=== PATIENT | female | born 1965 | race Caucasian/White ===

== ENCOUNTER 2020-07-19 14:13 | Outpatient (REF) | payer OTHER, SELFPAY ==
[2020-07-19 14:49] LABS: MANUAL DIFF FLAG NO
[2020-07-19 14:58] LABS: Basophils Percent Auto 0.4 % (0-2); Eosinophils Absolute Auto 0.4 X10*3/uL (0.0-0.4); Eosinophils Percent Auto 4.5 % (0-4); Hematocrit 42.7 % (37-47); Hemoglobin 13.7 g/dl (12.0-16.0); Imm Gran Abs Auto 0.01 X10*3/uL (0.00-0.03); Imm Gran Pct Auto 0.1 % (0.0-0.4); Lymphocytes Absolute Auto 3.8 X10*3/uL (1.2-4.9); Lymphocytes Percent Auto 46.8 % (20-40); Mean Corpuscular HGB Conc 32.1 g/dl (31.0-35.0); Mean Corpuscular Hemoglobin 30.6 pg (27.0-33.0); Mean Corpuscular Volume 95.5 fL (80-98); Mean Platelet Volume 10.8 fL (9.4-12.3); Monocytes Absolute Auto 0.5 X10*3/uL (0.1-1.2); Neutrophils Absolute Auto 3.4 X10*3/uL (2.0-8.3); Neutrophils Percent Auto 42.2 % (45-73); Platelet Count 339 X10*3/uL (160-400); Red Blood Count 4.47 X10*6/uL (4.20-5.50); Red Cell Distribution Width 13.2 % (11.0-16.0)
[2020-07-19 15:14] LABS: Estimated Average Glucose 97 mg/dL
[2020-07-19 15:19] LABS: Alanine Aminotransferase 20 U/L (0-31); Albumin Level 4.4 g/dL (3.5-5.0); Alkaline Phosphatase 95 U/L (39-117); Anion Gap 13 (12-20); Aspartate Amino Transferase 15 U/L (5-31); Bilirubin Total 0.4 mg/dL (0.0-1.0); Blood Urea Nitrogen 32 mg/dL (9-16); Calcium 9.8 mg/dL (8.4-10.2); Carbon Dioxide 30 mmol/L (22-29); Chloride 104 mmol/L (96-108); Estimated Glomerular Filt Rate > 60; Glucose Fasting 106 mg/dL (60-99); Potassium 4.8 mmol/L (3.3-5.1); Sodium 142 mmol/L (135-145); Total Protein 6.5 g/dL (6.5-8.0)
[2020-07-19 15:40] LABS: TSH reflex Free T4 0.96 uIU/mL (0.32-4.0)
== END 2020-07-19 14:14 | disposition home or self-care (01) ==
LOC: HO.LAB 14:13
PROVIDERS: PCP Physician Assistant; Visit Provider Physician Assistant
DX: I10 Essential (primary) hypertension (principal); J43.9 Emphysema, unspecified; Z13.1 Encounter for screening for diabetes mellitus
CPT/HCPCS: 36415; 80053; 83036; 84443; 85025

== ENCOUNTER 2023-02-09 14:19 | Outpatient (AMB) | payer OTHER, SELFPAY ==
[2023-02-09 14:24] VITALS: BP 138/92; PULSE 86; O2SAT 94; BMI 17.4
--- NOTE | 2023-02-09 14:24 | A.OFFPC_ITS ---
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 Required: No Accompanied by: Self / Same As Patient Allergies naltrexone [From Vivitrol] Allergy (Unknown, Verified 02/09/23 15:03) nausea vomitting Medication List - Last Reconciled 02/09/23 by Charlie Valente PA-C albuterol sulfate 90 mcg/actuation (Ventolin HFA) 2 puffs inhalation Q6H 30 days dextroamphetamine-amphetamine 10 mg (Adderall) 10 mg PO DAILY 28 days dextroamphetamine-amphetamine 20 mg ER (Adderall XR) 20 mg PO DAILY 28 days gabapentin 400 mg PO BID 30 days omeprazole 40 mg PO DAILY 90 days Tobacco use date assessed: 07/08/22 Dental Screening Dental Screen Date: 02/09/23 Did you have a dental visit in the last 12 months?: No Did you have a dental problem in the last 6 months where you did not have access to dental care?: No Was dental information given to patient?: Patient has dentist HPI medication follow-up 2 HPI0 Details Almaz is a 56 y/o F here today for a follow-up visit. Past medical history a opioid dependence, asthma/COPD, ADHD, anxiety, depression, PTSD. Still not working. Of note she has stopped using her Suboxone since January 2022 Of note seems somewhat manic today in office. Now living in an apartment here in [place] she does not feel safe in. ? .. ? ADHD: . Patient reports she stable on her current ADHD meds.? She was on Adderall 20 mg extended release in 10 mg immediate release. We did discuss the habit-forming nature of this medication though does seem to be suffering with an ADHD disorder . Agree to continue her on 1 tablet of Adderall 30 mg extended release to take on a daily basis to help her with her attention and focus. .. Major depressive disorder/ anxiety: She reports gabapentin is helpful on reducing her anxiety and her neuropathic pain.? She is interested in a slight increase in the dose. We did have a discussion about the habit-forming nature of this medication and her history of polysubstance abuse and patient does agree and understand. .. .. Hypertension:? Blood pressure acceptable today in office. ?? had a history of hypertension though has been able to control her blood pressure with lifestyle.. .. ?opiate dependence:? Has stopped using Suboxone and has been able to wean herself off. She reports having nausea and vomiting with this Suboxone and self weaned, she assures me she is not using any street drugs at this time though has lost lot weight and seems somewhat more ? manic today in office. .. GERD:? Has been well controlled with PPI therapy. .. COPD: Unfortunately still smoking,? She report cutting down her smoking as of late. Still does use an albuterol inhaler from time to time. [facility] Medical History (Updated 02/10/23 @ 07:45 by Charlie Valente PA-C) Alcohol dependence Surgical History History of esophagogastroduodenoscopy (EGD) History of tooth extraction History of dental surgery H/O: hysterectomy Family History Father Brain tumor Mother Asthma CHF (congestive heart failure) Diabetes Brother No problems noted. Brother No problems noted. Brother No problems noted. 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 Leonel Wallace, Shruthi Lynne, Gui Cantu and colleagues, with an educational cassie from [employer]. Review of Systems Const Denies headache(s) Eyes Denies loss of vision ENT Denies vertigo, Denies dizziness, Denies headache(s) and Denies sore throat Card Denies chest pain, Denies leg edema and Denies lightheadedness Resp Denies cough, Denies hemoptysis and Denies wheezing GI Denies abdominal pain, Denies melena, Denies constipation, Denies diarrhea and Denies vomiting Denies urinary frequency, Denies dysuria and Denies urinary urgency Musc Denies arthralgias, Denies joint swelling, Denies numbness and Denies tingling Neuro Denies Abnormal speech present, Denies behavioral changes, Denies vertigo, Denies dizziness, Denies headache(s), Denies loss of vision, Denies memory loss, Denies numbness and Denies tingling Psych Denies anxiety, Denies behavioral changes, Denies depression, Denies memory loss and Denies panic attacks Nishant/Lymph Denies easy bleeding and Denies easy bruising Aller/Immun Denies wheezing Physical exam (Primary Care) Vital Signs: Last Vital Signs Pulse 86 02/09/23 14:24 BP 138/92 H 02/09/23 14:24 Pulse Ox 94 02/09/23 14:24 Oxygen Delivery Method Room Air 02/09/23 14:24 BMI result Body Mass Index 17.4 BMI Assessment/Plan discussion: Low Tobacco/Smoking Status: Tobacco use Status Tobacco use date assessed 07/08/22 02/09/23 14:25 Patient Tobacco Use Status Current everyday Tobacco 02/09/23 14:25 Tobacco use type Cigarette 02/09/23 14:25 e-Cigarette/Vaping Use Never Used 02/09/23 14:25 Are you ready to quit: No Tobacco cessation counseling provided: Yes Items discussed: Nicotine replacement Relapse Prevention: discussed the importance of a supportive environment, discussed negative mood or depression after quitting, weight gain after smoking is common and discussed dietary, exercise and/or lifestyle changes Number of minutes spent counselin CPT code: 06958 - 4-10 Minutes Thrive Assessment: Date of Thrive Assessment Date Thrive assessed 07/08/22 02/09/23 14:25 Const Other: SEEMS SOMEWHAT HYPERACTIVE AND TALKATIVE TODAY IN OFFICE. General: no acute distress, alert and awake Nutritional Appearance: well nourished Orientation/consciousness: oriented to person, oriented to place and oriented to time HENMT Ears: TM's normal bilaterally General nose exam: Normal nasal mucous membranes and turbinates present Eyes Conjunctivae: conjunctivae normal Sclerae: sclerae normal Pupils: Equal, round and reactive pupils present Neck Neck: Yes no lymphadenopathy and Yes no JVD Thyroid: Thyroid normal Carotids: no bruits Resp Effort & Inspection: normal respiratory effort and not tachypneic Auscultation: no crackles, no rales, no rhonchi and no wheezes Cardio Rate: regular rate Rhythm: regular rhythm Heart sounds: no murmurs and normal S1 and S2 GI Palpation (GI): Soft to palpation, nontender, no hepatomegaly and no splenomegaly Auscultation: normal bowel sounds Abdomen image: 2 1. PALPABLE LUMP OVER HER UMBILICUS NOTED. Skin General skin exam: no rashes or lesions noted and dry skin Neuro General: oriented to person, oriented to place and oriented to time Cranial nerves: Yes Equal, round and reactive pupils present Speech: No Abnormal speech present Gait exam (Neuro): Normal gait present Motor exam (neuro): no tremor noted Extrem Right upper extremity: full ROM Left upper extremity: full ROM Right lower extremity: full ROM; no edema Left lower extremity: full ROM; no edema Psych Mental Status: mental status grossly normal Speech and movement: Normal speech and movement present Affect: normal affect Attitude: cooperative Thought process: Normal thought process present Assessment and Plan Assessment & Plan (1) ADHD: Code(s): F90.9 - Attention-deficit hyperactivity disorder, unspecified type Qualifiers: Attention deficit-hyperactivity disorder type: combined inattentive- hyperactive Qualified Code(s): F90.2 - Attention-deficit hyperactivity disorder, combined type Plan: As per HPI patient, she has been out of ADHD medication over the last month and has been having worsening attention to detail and focus.. WILL DISCONTINUE BOTH ADDERALL 20 MG EXTENDED RELEASE AND 10 MG IMMEDIATE RELEASE AND TRANSITION TO 1 TABLET OF 30 MG EXTENDED RELEASE DAILY. SHE CONTINUES TO EXHIBIT SIGNS OF LACK OF FOCUS AND INABILITY TO GATHER THOUGHTS. 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 Otherwise does not have a stable job. (2) COPD (chronic obstructive pulmonary disease): Code(s): J44.9 - Chronic obstructive pulmonary disease, unspecified Qualifiers: COPD type: emphysema Emphysema type: unspecified Qualified Code(s): J 43.9 - Emphysema, unspecified Plan: UNFORTUNATELY DOES CONTINUE TO SMOKE. DOES USE AN ALBUTEROL INHALER ON A P.R.N. BASIS FOR COUGH AND WHEEZE. (3) Tobacco dependence: Code(s): F17.200 - Nicotine dependence, unspecified, uncomplicated Plan: PATIENT DOES UNDERSTAND SHE NEEDS TO QUIT SMOKING THOUGH DECLINES MY OFFERS TO START NICOTINE REPLACEMENT THERAPY. (4) Umbilical hernia: Code(s): K42.9 - Umbilical hernia without obstruction or gangrene Qualifiers: Obstruction and gangrene presence: without obstruction or gangrene Qualified Code(s): K42.9 - Umbilical hernia without obstruction or gangrene Plan: Has a palpable lump over her umbilicus. Offered her referral to general surgeon for evaluation on surgical fix though patient declines. (5) Opiate dependence: Code(s): F11.20 - Opioid dependence, uncomplicated Qualifiers: Substance use status: in remission Qualified Code(s): F11.21 - Opioid dependence, in remission Plan: Now in remission. Has been office Suboxone since January of 2022. Reports Suboxone gave her intolerable side effects. She informs me she is clean from street drugs though this is unclear. Orders: Orders 2 Complete Blood Count no Diff 02/09/23 I10 - Essential (primary) hypertension Comprehensive [place]. Panel Fast 02/09/23 I10 - Essential (primary) hypertension Microalbumin, Random (w Creat) 02/09/23 I10 - Essential (primary) hypertension Medications: New 2 dextroamphetamine-amphetamine 30 mg ER (Adderall XR) Partial Fill upon patient request. 30 mg PO DAILY 28 days 28 caps 0RF F90.2 - Attention-deficit hyperactivity disorder, combined type Discontinued 2 dextroamphetamine-amphetamine 10 mg (Adderall) Discontinued Reason: Doctor's Order 10 mg PO DAILY 28 days 28 tabs 0RF F90.2 - Attention-deficit hyperactivity disorder, combined type dextroamphetamine-amphetamine 20 mg ER (Adderall XR) Discontinued Reason: Doctor's Order 20 mg PO DAILY 28 days 28 caps 0RF F90.2 - Attention-deficit hyperactivity disorder, combined type Coding Level of Care Code Est Pt Level 4 (76231) Diagnoses Attention deficit hyperactivity disorder (ADHD), combined type F90.2 Attention deficit-hyperactivity disorder type: combined inattentive- hyperactive Pulmonary emphysema, unspecified emphysema type J43.9 COPD type: emphysema Emphysema type: unspecified Tobacco dependence F17.200 Umbilical hernia without obstruction and without gangrene K42.9 Obstruction and gangrene presence: without obstruction or gangrene Opioid dependence in remission F11.21 Substance use status: in remission Additional Codes Vital Signs *Quality* - CPT code: 18616 - 4-10 Minutes ([id number])
== END 2023-02-09 15:24 | disposition home or self-care (01) ==
PROVIDERS: PCP Physician Assistant; Visit Provider Physician Assistant
DX: J43.9 Emphysema, unspecified (principal); F11.21 Opioid dependence, in remission; F90.2 Attention-deficit hyperactivity disorder, combined type; F17.210 Nicotine dependence, cigarettes, uncomplicated; K42.9 Umbilical hernia without obstruction or gangrene
CPT/HCPCS: 99214; 99406

== ENCOUNTER 2023-09-22 15:45 | Outpatient (AMB) | payer OTHER, SELFPAY ==
--- NOTE | 2023-09-22 15:53 | MHC.PC.OV ---
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 Accompanied by: Self / Same As Patient Allergies naltrexone [From Vivitrol] Allergy (Unknown, Verified 09/22/23 16:04) nausea vomitting Medication List - Last Reconciled 09/22/23 by Charlie Valente PA-C albuterol sulfate 90 mcg/actuation (Ventolin HFA) 2 puffs inhalation Q6H 30 days dextroamphetamine-amphetamine 10 mg (Adderall) 10 mg PO DAILY 28 days dextroamphetamine-amphetamine 20 mg ER (Adderall XR) 20 mg PO DAILY 28 days gabapentin 400 mg PO BID 30 days lisdexamfetamine (Vyvanse) 30 mg PO DAILY 30 days omeprazole 40 mg PO DAILY 90 days Tobacco use date assessed: 09/22/23 Dental Screening Dental Screen Date: 09/22/23 Did you have a dental visit in the last 12 months?: No Did you have a dental problem in the last 6 months where you did not have access to dental care?: No Was dental information given to patient?: Patient declined HPI f/u ADHD HPI Details Almaz is a 58 y/o F here today for a follow-up visit. Past medical history a opioid dependence, asthma/COPD, ADHD, anxiety, depression, PTSD. Still not working. Of note she has stopped using her Suboxone since January 2022 Of note seems somewhat manic today in office. currently homeless ? .. ? ADHD: . Patient reports she stable on her current ADHD meds.? She was on Adderall 20 mg extended release in 10 mg immediate release. We transitioned to Vyvanse, she reports Vyvanse is not as effective . Unfortunately at this time she is not working and is homeless. Living with family. . Agree to continue her on 1 tablet of Adderall 30 mg extended release to take on a daily basis to help her with her attention and focus. .. Major depressive disorder/ anxiety: She reports gabapentin is helpful on reducing her anxiety and her neuropathic pain.? She is interested in a slight increase in the dose. We did have a discussion about the habit-forming nature of this medication and her history of polysubstance abuse and patient does agree and understand. .. .. Hypertension: Patient has a history of a blood pressure. Has been able to manage with lifestyle modifications.? Blood pressure acceptable today in office. ?? had a history of hypertension though has been able to control her blood pressure with lifestyle.. .. History of?opiate dependence:? Admits to some relapses over the last year. Has stopped using Suboxone and has been able to wean herself off. She reports having nausea and vomiting with this Suboxone and self weaned, she assures me she is not using any street drugs at this time though has lost lot weight and seems somewhat more ? manic today in office. .. GERD:? Has been well controlled with PPI therapy. .. COPD: Unfortunately still smoking,? She report cutting down her smoking as of late. Still does use an albuterol inhaler from time to time. [facility] Medical History (Updated 02/10/23 @ 07:45 by Charlie Valente PA-C) Alcohol dependence Surgical History History of esophagogastroduodenoscopy (EGD) History of tooth extraction History of dental surgery H/O: hysterectomy Family History Father Brain tumor Mother Asthma CHF (congestive heart failure) Diabetes Brother No problems noted. Brother No problems noted. Brother No problems noted. 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 1. Little interest or pleasure in doing things: not at all 2. Feeling down, depressed, or hopeless: not at all 3. Trouble falling or staying asleep, or sleeping too much: not at all 4. Feeling tired or having little energy: not at all 5. Poor appetite or overeating: not at all 6. Feeling bad about yourself - or that you are a failure or have let yourself or your family down: not at all 7. Trouble concentrating on things, such as reading the newspaper or watching television: not at all 8. Moving or speaking so slowly that other people could have noticed. Or the opposite - being so fidgety or restless that you have been moving around a lot more than usual: not at all 9. Thoughts that you would be better off or of hurting yourself in some way: not at all Total score: 0 Depression Screening Interpretation: Negative Depression Screening Done: Yes [id number] - PHQ-9 Billing: Yes Source: Developed by Drs. Leonel Wallace, Shruthi Lynne, Gui Cantu and colleagues, with an educational cassie from [employer]. Thrive Questionnaire Date Thrive assessed: 09/22/23 I am a: Patient What is your living situation today?: I have a steady place to live Within the past 12 months, did the food you bought not last and you didn't have the money to get more?: Never true Within the past 12 months, did you worry whether your food would run out before you got money to buy more?: Never true Do you have trouble paying for medicines?: No Do you have trouble getting transportation to medical appointments?: No Do you have trouble paying your heating and electricity bill?: No Do you have trouble taking care of your child, family member or friend?: No Do you have trouble with day-to-day activities such as bathing, preparing meals, shopping, managing finances, etc.?: No Are you currently unemployed and looking for a job?: No Are you interested in more education?: No Please select the resources that you would like help with: None Currently or been in a relationship where the following occur: No concerns reported THRIVE Score: 0 AUDIT C Alcohol Use Questionnaire (AUDIT-C) 1. How often do you have a drink containing alcohol?: Never Total Score: 0 JEREMI-7 AMB Questionnaire JEREMI-7 Date JEREMI - 7 assessed: 09/22/23 Feeling nervous, anxious, or on edge: 0 = Not at all Not being able to stop or control worryin = Not at all Worrying too much about different things: 0 = Not at all Trouble relaxin = Not at all Being so restless that it is hard to sit still: 0 = Not at all Becoming easily annoyed or irritable: 0 = Not at all Feeling afraid as if something awful might happen: 0 = Not at all Total JEREMI-7 score (0-4 normal; 5-9 mild; 10-14 moderate; 15-21 severe): 0 Source: Developed by Drs. Leonel Wallace, Shruthi Lynne, Gui Cantu and colleagues, with an educational cassie from [employer]. JEREMI-7 Assessment Billing JEREMI-7 Assessment Tool: JEREMI-7 Assessment 91598 Review of Systems Const Denies headache(s) Eyes Denies loss of vision ENT Denies vertigo, Denies dizziness, Denies headache(s) and Denies sore throat Card Denies chest pain, Denies leg edema and Denies lightheadedness Resp Denies cough, Denies hemoptysis and Denies wheezing GI Denies abdominal pain, Denies melena, Denies constipation, Denies diarrhea and Denies vomiting Denies urinary frequency, Denies dysuria and Denies urinary urgency Musc Denies arthralgias, Denies joint swelling, Denies numbness and Denies tingling Neuro Denies Abnormal speech present, Denies behavioral changes, Denies vertigo, Denies dizziness, Denies headache(s), Denies loss of vision, Denies memory loss, Denies numbness and Denies tingling Psych Denies anxiety, Denies behavioral changes, Denies depression, Denies memory loss and Denies panic attacks Nishant/Lymph Denies easy bleeding and Denies easy bruising Aller/Immun Denies wheezing Physical exam (Primary Care) Vital Signs: Last Vital Signs Pulse 141 H 09/22/23 15:54 BP 134/86 09/22/23 15:54 Pulse Ox 96 09/22/23 15:54 Oxygen Delivery Method Room Air 09/22/23 15:54 BMI result Body Mass Index 20.1 Tobacco/Smoking Status: Tobacco use Status Tobacco use date assessed 09/22/23 09/22/23 15:55 Patient Tobacco Use Status Current everyday Tobacco 09/22/23 15:55 Tobacco use type Cigarette 09/22/23 15:55 e-Cigarette/Vaping Use Never Used 09/22/23 15:55 Are you ready to quit: No Tobacco cessation counseling provided: Yes Items discussed: Nicotine replacement Relapse Prevention: discussed the importance of a supportive environment, discussed negative mood or depression after quitting, weight gain after smoking is common and discussed dietary, exercise and/or lifestyle changes Number of minutes spent counselin CPT code: 49659 - 4-10 Minutes PHQ-9: PHQ-9 Score PHQ-9: Total score 0 09/22/23 16:08 Depression Screening Interpretation: Negative Thrive Assessment: Date of Thrive Assessment Date Thrive assessed 09/22/23 09/22/23 15:55 Currently or been in a relationship where the following occur: No concerns reported Const General: healthy appearing, no acute distress, alert and awake Nutritional Appearance: well nourished Orientation/consciousness: oriented to person, oriented to place and oriented to time HENMT Ears: TM's normal bilaterally General nose exam: Normal nasal mucous membranes and turbinates present Eyes Conjunctivae: conjunctivae normal Sclerae: sclerae normal Pupils: Equal, round and reactive pupils present Neck Neck: Yes no lymphadenopathy and Yes no JVD Thyroid: Thyroid normal Carotids: no bruits Resp Effort & Inspection: normal respiratory effort and not tachypneic Auscultation: no crackles, no rales, no rhonchi and no wheezes Cardio Rate: regular rate Rhythm: regular rhythm Heart sounds: no murmurs and normal S1 and S2 GI Palpation (GI): Soft to palpation, nontender, no hepatomegaly and no splenomegaly Auscultation: normal bowel sounds Skin General skin exam: no rashes or lesions noted and dry skin Neuro General: oriented to person, oriented to place and oriented to time Cranial nerves: Yes Equal, round and reactive pupils present Speech: No Abnormal speech present Gait exam (Neuro): Normal gait present Motor exam (neuro): no tremor noted Extrem Right upper extremity: full ROM Left upper extremity: full ROM Right lower extremity: full ROM; no edema Left lower extremity: full ROM; no edema Psych Mental Status: mental status grossly normal Speech and movement: Normal speech and movement present Affect: normal affect Attitude: cooperative Thought process: Normal thought process present Assessment and Plan Assessment & Plan (1) ADHD: Code(s): F90.9 - Attention-deficit hyperactivity disorder, unspecified type Qualifiers: Attention deficit-hyperactivity disorder type: combined inattentive-hyperactive Qualified Code(s): F90.2 - Attention-deficit hyperactivity disorder, combined type Plan: As per HPI patient, she has been out of ADHD medication over the last month and has been having worsening attention to detail and focus.. Unfortunately she has not been working in his technically homeless living with family at this time. She reports Vyvanse has not been as effective for her on keeping her attention and focus on her daily living tasks. Willing to transition back to Adderall 1 tablet 30 mg daily to help her with her attention focus on activities of daily living. *Will try to refer to psychiatry bridge program to establish ineffective med regime for her ADHD. She obviously does have hyperactive activity though seems that medications use of far have not been completely effective. (2) COPD (chronic obstructive pulmonary disease): Code(s): J44.9 - Chronic obstructive pulmonary disease, unspecified Qualifiers: COPD type: emphysema Emphysema type: unspecified Qualified Code(s): J43.9 - Emphysema, unspecified Plan: UNFORTUNATELY DOES CONTINUE TO SMOKE. DOES USE AN ALBUTEROL INHALER ON A P.R.N. BASIS FOR COUGH AND WHEEZE. (3) Tobacco dependence: Code(s): F17.200 - Nicotine dependence, unspecified, uncomplicated Plan: PATIENT DOES UNDERSTAND SHE NEEDS TO QUIT SMOKING THOUGH DECLINES MY OFFERS TO START NICOTINE REPLACEMENT THERAPY. Orders: Referrals Psychiatry Outpatient Consultation Service F90.2 - Attention-deficit hyperactivity disorder, combined type Medications: New dextroamphetamine-amphetamine 30 mg ER (Adderall XR) Partial Fill upon patient request. 30 mg PO DAILY 28 caps 0RF 28 days F90.2 - Attention-deficit hyperactivity disorder, combined type Discontinued lisdexamfetamine Partial Fill upon patient request. Discontinued Reason: Doctor's Order 30 mg PO DAILY 30 days 30 caps 0RF F90.2 - Attention-deficit hyperactivity disorder, combined type dextroamphetamine-amphetamine 20 mg ER Partial Fill upon patient request. Discontinued Reason: Doctor's Order 20 mg PO DAILY 28 days 28 caps 0RF F90.2 - Attention-deficit hyperactivity disorder, combined type dextroamphetamine-amphetamine 10 mg Partial Fill upon patient request. Discontinued Reason: Doctor's Order 10 mg PO DAILY 28 days 28 tabs 0RF F90.2 - Attention-deficit hyperactivity disorder, combined type Coding Level of Care Code Est Pt Level 4 (89245) Diagnoses Attention deficit hyperactivity disorder (ADHD), combined type F90.2 Attention deficit-hyperactivity disorder type: combined inattentive-hyperactive Pulmonary emphysema, unspecified emphysema type J43.9 COPD type: emphysema Emphysema type: unspecified Tobacco dependence F17.200 Additional Codes JEREMI-7 Assessment Billing - JEREMI-7 Assessment Tool: JEREMI-7 Assessment 77149 ([id number]) Vital Signs *Quality* - CPT code: 22718 - 4-10 Minutes ([id number])
[2023-09-22 15:54] VITALS: BP 134/86; PULSE 141; O2SAT 96; BMI 20.1
== END 2023-09-22 16:28 | disposition home or self-care (01) ==
PROVIDERS: PCP Physician Assistant; Visit Provider Physician Assistant
DX: J43.9 Emphysema, unspecified (principal); F90.2 Attention-deficit hyperactivity disorder, combined type; F17.210 Nicotine dependence, cigarettes, uncomplicated
CPT/HCPCS: 99214

== ENCOUNTER 2023-10-28 13:08 | Outpatient (AMB) | payer OTHER, SELFPAY ==
--- NOTE | 2023-10-28 13:55 | MHC.OFFVISPS ---
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 Allergies naltrexone [From Vivitrol] Allergy (Unknown, Verified 09/22/23 16:04) nausea vomitting Medication List - Last Reconciled 10/28/23 by Sandhya Nazario APRN albuterol sulfate 90 mcg/actuation (Ventolin HFA) 2 puffs inhalation Q6H 30 days dextroamphetamine-amphetamine 15 mg (Adderall) 15 mg PO DAILY dextroamphetamine-amphetamine 30 mg ER (Adderall XR) 30 mg PO DAILY 28 days gabapentin 400 mg PO BID 30 days lamotrigine (Lamictal) 25 mg orally Take one tablet daily x 10 days then take 2 tablets every day; 30 days omeprazole 40 mg PO DAILY 90 days HPI- Psychiatric Chief Complaint: consultation HPI Narrative: Pt is 58 yo referred by PCP for eval and treatment of ADHD. Pt struggles with ADHD, unable to focus or concentrate. She stated she has a lot of projects she wants to accomplish, but is unable to because of her sx. She reports high level of stress due to housing and her mother entered hospice today. Pt is labile and easily tearful. She did appear hyperverbal in session; she has pressured speech and talked about housing situation, claiming her landlord falsified documents in court to evict her. She reports a hx of ADHD in childhood; She also reports hx of trauma and has been told she has PTSD. She feels abandoned by her family and friends. Difficult to redirect the conversation, took multiple prompts to realign conversation to her psychiatric medication needs. she says he life has been disorganized for years and she cant seem to find a way to get back on track; she sleeps 2am to noon daily. she reports intruaive thoughts about past trauma and past abandonments. she has night oliver. Past Psychiatric History: past tx for ADHD and PTSD. [facility]. was in residential tx 2017 for tx opiates and cocaine; off suboxone x 2 yrs; reports no opiates since but has used cocaine 2x a month Subjective Subjective Subjective Medication Compliance: Yes Side effects from medications: No Review of Systems Medical Review of Systems: unchanged Mental Status Exam Mental Status Exam Patient Appearance: Appropriate Patient Orientation: Person, Place, Time and Situation Level of Consciousness: Awake Patient Behavior: Appropriate and Restless Mood Description: Anxious and Labile Affect Description: Anxious and Labile Patient Cognition Impaired: No Ability to Follow Directions: Good Speech Pattern: Perseverating and Rambling Hallucinations: None Delusions: Not Present Thought Process: Racing and Distracted Thought Content: positive for Preoccupation and positive for Loose Associations Judgement: Fair Assessment and Plan Assessment & Plan (1) ADHD (attention deficit hyperactivity disorder), combined type: Status: Acute Code(s): F90.2 - Attention-deficit hyperactivity disorder, combined type (2) Chronic post-traumatic stress disorder (PTSD): Status: Acute Code(s): F43.12 - Post-traumatic stress disorder, chronic Plan start lamictal 25 mg daily x 10 days then 50 mg daily thereafter adderall xr 30 mg in am Take adderall IR 15 mg 6 hours after 30 mg XR Medications: New dextroamphetamine-amphetamine 15 mg (Adderall) Partial Fill upon patient request. In addition to 30 XR 15 mg PO DAILY 30 tabs 0RF lamotrigine (Lamictal) 25 mg orally Take one tablet daily x 10 days then take 2 tablets every day; 30 tabs 0RF 30 days Counseling and coordination of Care Pt. Self Management counseling: Maintenance-social rhythm, Mod caffeine/ETOH intake, Sleep hygiene, General coping skills and Problem solving Medication management counseling: Effectiveness, Side effects, Dosing range, Duration, Drug interaction and Adherence Diagnosis and Prognosis Counseling: Accuracy of diagnosis, Problematic behaviors secondary to diagnosis and Adequacy of current interventions Details: I spent 70 minutes reviewing the record, seeing the patient and documenting in the medical record. Counseling provided to the patient/caregiver as outlined below. Addressed patient/caregiver concerns regarding current medication regime including effective adherence. Addressed patient/caregiver concerns regarding diagnosis and prognosis including accuracy of diagnosis, prognosis over time, impact of diagnosis. Addressed patient/caregiver concerns regarding impact of recent stressors. COUNT INCLUDES [facility] Medical History (Updated 10/28/23 @ 13:56 by Sandhya Nazario APRN) Alcohol dependence Surgical History History of esophagogastroduodenoscopy (EGD) History of tooth extraction History of dental surgery H/O: hysterectomy Family History Father Brain tumor Mother Asthma CHF (congestive heart failure) Diabetes Brother No problems noted. Brother No problems noted. Brother No problems noted. 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 Substance History: tobacco 8-10 cigarettes per day, ETOH 2 x a month, THC none, opiates in 2017, cocaine 2 x a month when offered. Trauma History: yes Coding Level of Care Code Psych Diag Eval w/Med (69780) Diagnoses ADHD (attention deficit hyperactivity disorder), combined type F90.2 Chronic post-traumatic stress disorder (PTSD) F43.12
== END 2023-10-28 14:17 | disposition home or self-care (01) ==
LOC: HO.HOP 13:08
PROVIDERS: PCP Physician Assistant; Visit Provider Clinical Nurse Specialist Psychiatric/Mental Health
DX: F90.2 Attention-deficit hyperactivity disorder, combined type (principal); F43.12 Post-traumatic stress disorder, chronic
CPT/HCPCS: 90792

== ENCOUNTER → 2023-10-28 13:08 | Outpatient (BNVA) | payer OTHER, SELFPAY | PROVIDERS: PCP Physician Assistant; Visit Provider Clinical Nurse Specialist Psychiatric/Mental Health | DX: F90.2 Attention-deficit hyperactivity disorder, combined type (principal); F43.12 Post-traumatic stress disorder, chronic | CPT/HCPCS: 90792 ==

== ENCOUNTER 2023-11-12 22:43 | Outpatient (AMB) | payer OTHER, SELFPAY ==
--- NOTE | 2023-11-12 15:33 | A.OFFPSYCH_ITS ---
Intake Intake Visit Reasons: f/u consultation [employer] Required: No Allergies naltrexone [From Vivitrol] Allergy (Unknown, Verified 09/22/23 16:04) nausea vomitting Medication List - Last Reconciled 11/12/23 by Sandhya Nazario APRN albuterol sulfate 90 mcg/actuation (Ventolin HFA) 2 puffs inhalation Q6H 30 days dextroamphetamine-amphetamine 15 mg (Adderall) 15 mg PO DAILY dextroamphetamine-amphetamine 30 mg ER (Adderall XR) 30 mg PO DAILY 28 days gabapentin 400 mg PO BID 30 days lamotrigine (Lamictal) 25 mg orally Take one tablet daily x 10 days then take 2 tablets every day; 30 days omeprazole 40 mg PO DAILY 90 days HPI- Psychiatric Chief Complaint: f/u consultation HPI Narrative: pt reports she is doing worse; her mother a few days after we met; housing is trying to kick her out of her mother's house before she can even empty it of her mother's belongings; she is trying to pack; she is trying to get housing for herself but her past landlord evicted her by lying to the court. she is going to meet with the district atty. she reports the lamictal has helped a little; no side effects; she lost her adderall while trying to pack her mother's house; she can't find the bottle and can't fill it till 11/15. We discussed trying a higher dose and bumping the adderall XR up to 40mg daily in am. her speech is pressured; mind racing; thoughts are rrapid; she jumps from one subject to the next; she feels desperate from past trauma and current homelessness and mistreatment by others. she denies active SI but says if comes to me I'd welcome it; she states she will not hurt herself. Past Psychiatric History: past tx for ADHD and PTSD. treated for substance abuse at [facility] in 2017. was in residential tx 2017 for tx opiates and cocaine; off suboxone x 2 yrs; reports no opiates since but has used cocaine 2x a month Subjective Subjective Subjective Medication Compliance: Yes Side effects from medications: No Review of Systems Medical Review of Systems: unchanged Mental Status Exam Mental Status Exam Patient Appearance: Appropriate Patient Orientation: Person, Place, Time and Situation Level of Consciousness: Awake Patient Behavior: Appropriate and Invasion - Personal Space Mood Description: Anxious and Labile Affect Description: Anxious and Labile Patient Cognition Impaired: No Ability to Follow Directions: Fair Speech Pattern: Perseverating, Rambling and Excessive Hallucinations: None Delusions: Not Present Thought Process: Intact, Distracted and Goal Oriented Thought Content: positive for Intact, positive for Racing, positive for Goal Oriented, positive for Perseveration and positive for Loose Associations Judgement: Fair Assessment and Plan Assessment & Plan (1) Chronic post-traumatic stress disorder (PTSD): Status: Acute Code(s): F43.12 - Post-traumatic stress disorder, chronic (2) ADHD (attention deficit hyperactivity disorder), combined type: Status: Acute Code(s): F90.2 - Attention-deficit hyperactivity disorder, combined type Plan Increase the lamictal to 100mg qam increase adderall XR 20mg to two caps daily in am (40mg total am dose) Medications: New dextroamphetamine-amphetamine 20 mg ER (Adderall XR) Partial Fill upon patient request. 40 mg (2 x 20 mg) PO QAM 14 caps 0RF 7 days lamotrigine (Lamictal) 100 mg PO DAILY 90 tabs 1RF Counseling and coordination of Care Pt. Self Management counseling: Maintenance-social rhythm, Sleep hygiene, Behavior activation, General coping skills and Problem solving Medication management counseling: Effectiveness, Side effects, Dosing range, Duration, Drug interaction and Adherence Diagnosis and Prognosis Counseling: Accuracy of diagnosis, Prognosis over time, Impact of diagnosis on life functions, Impact of family relationship, Problematic behaviors secondary to diagnosis and Adequacy of current interventions Details: I spent 30 minutes reviewing the record, seeing the patient and documenting in the medical record. Counseling provided to the patient/caregiver as outlined below. Addressed patient/caregiver concerns regarding current medication regime including effective adherence. Addressed patient/caregiver concerns regarding diagnosis and prognosis including accuracy of diagnosis, prognosis over time, impact of d iagnosis. Addressed patient/caregiver concerns regarding impact of recent stressors. [facility] Medical History (Updated 10/28/23 @ 13:56 by Sandhya Nazario APRN) Alcohol dependence Surgical History History of esophagogastroduodenoscopy (EGD) History of tooth extraction History of dental surgery H/O: hysterectomy Family History Father Brain tumor Mother Asthma CHF (congestive heart failure) Diabetes Brother No problems noted. Brother No problems noted. Brother No problems noted. 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 Substance History: tobacco 8-10 cigarettes per day, ETOH 2 x a month, THC none, opiates in 2016, cocaine 2 x a month when offered. Trauma History: yes Coding Level of Care Code Est Pt Level 4 (28763) Diagnoses Chronic post-traumatic stress disorder (PTSD) F43.12 ADHD (attention deficit hyperactivity disorder), combined type F90.2
== END 2023-11-12 22:45 | disposition home or self-care (01) ==
PROVIDERS: PCP Physician Assistant; Visit Provider Clinical Nurse Specialist Psychiatric/Mental Health
DX: F43.12 Post-traumatic stress disorder, chronic (principal); F90.2 Attention-deficit hyperactivity disorder, combined type
CPT/HCPCS: 99214

== ENCOUNTER → 2023-11-12 22:43 | Outpatient (BNVA) | payer OTHER, SELFPAY | PROVIDERS: PCP Physician Assistant; Visit Provider Clinical Nurse Specialist Psychiatric/Mental Health | DX: F90.2 Attention-deficit hyperactivity disorder, combined type (principal); F43.12 Post-traumatic stress disorder, chronic | CPT/HCPCS: 99212 ==

== ENCOUNTER 2023-11-24 15:21 | Outpatient (AMB) | payer OTHER, SELFPAY ==
--- NOTE | 2023-11-24 15:20 | MHC.PC.OV ---
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: No Accompanied by: Self / Same As Patient Allergies naltrexone [From Vivitrol] Allergy (Unknown, Verified 11/24/23 15:32) nausea vomitting Medication List - Last Reconciled 11/24/23 by Charlie Valente PA-C albuterol sulfate 90 mcg/actuation (Ventolin HFA) 2 puffs inhalation Q6H 30 days dextroamphetamine-amphetamine 20 mg ER (Adderall XR) 40 mg (2 x 20 mg) PO QAM 7 days gabapentin 400 mg PO BID 30 days lamotrigine (Lamictal) 100 mg PO DAILY omeprazole 40 mg PO DAILY 90 days Tobacco use date assessed: 09/22/23 Dental Screening Dental Screen Date: 09/22/23 HPI 2 Month F/U HPI Details Almaz is a 58 y/o F here today for a follow-up visit. Past medical history a opioid dependence, asthma/COPD, ADHD, anxiety, depression, PTSD. Still not working, unfortunately now is homeless, living at times with family. Also her mother recently . ? .. ? ADHD: . Patient has establish with temporarily psych provider whom agrees on 40 mg of Adderall for her ADHD. An additional 15 mg Adderall was agreed upon to take in the afternoon ADHD symptoms were evident. Has also started on mood stabilizing lamotrigine 100 mg. .. Major depressive disorder/ anxiety: She reports gabapentin is helpful on reducing her anxiety and her neuropathic pain.? She is interested in a slight increase in the dose. We did have a discussion about the habit-forming nature of this medication and her history of polysubstance abuse and patient does agree and understand. CHRONIC MEDICAL CONDITIONS-- .. Hypertension: Patient has a history of a blood pressure. Has been able to manage with lifestyle modifications.? Blood pressure acceptable today in office. ?? had a history of hypertension though has been able to control her blood pressure with lifestyle.. .. History of?opiate dependence:? Admits to some relapses over the last year. Has stopped using Suboxone and has been able to wean herself off. She reports having nausea and vomiting with this Suboxone and self weaned, she assures me she is not using any street drugs at this time though has lost lot weight and seems somewhat more ? manic today in office. .. GERD:? Has been well controlled with PPI therapy. .. COPD: Unfortunately still smoking,? She report cutting down her smoking as of late. Still does use an albuterol inhaler from time to time. [facility] Medical History Alcohol dependence Surgical History History of esophagogastroduodenoscopy (EGD) History of tooth extraction History of dental surgery H/O: hysterectomy Family History Father Brain tumor Mother Asthma CHF (congestive heart failure) Diabetes Brother No problems noted. Brother No problems noted. Brother No problems noted. 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 Leonel Wallace, Shruthi Lynne, Gui Cantu and colleagues, with an educational cassie from [employer]. Review of Systems Const Denies headache(s) Eyes Denies loss of vision ENT Denies vertigo, Denies dizziness, Denies headache(s) and Denies sore throat Card Denies chest pain, Denies leg edema and Denies lightheadedness Resp Denies cough, Denies hemoptysis and Denies wheezing GI Denies abdominal pain, Denies melena, Denies constipation, Denies diarrhea and Denies vomiting Denies urinary frequency, Denies dysuria and Denies urinary urgency Musc Denies arthralgias, Denies joint swelling, Denies numbness and Denies tingling Neuro Denies Abnormal speech present, Denies behavioral changes, Denies vertigo, Denies dizziness, Denies headache(s), Denies loss of vision, Denies memory loss, Denies numbness and Denies tingling Psych Denies anxiety, Denies behavioral changes, Denies depression, Denies memory loss and Denies panic attacks Nishant/Lymph Denies easy bleeding and Denies easy bruising Aller/Immun Denies wheezing Physical exam (Primary Care) Vital Signs: Last Vital Signs Pulse 112 H 11/24/23 15:27 BP 140/94 H 11/24/23 15:27 Pulse Ox 96 11/24/23 15:27 Oxygen Delivery Method Room Air 11/24/23 15:27 BMI result Body Mass Index 21.8 Tobacco/Smoking Status: Tobacco use Status Tobacco use date assessed 09/22/23 11/24/23 15:22 Patient Tobacco Use Status Current everyday Tobacco 11/24/23 15:22 Tobacco use type Cigarette 11/24/23 15:22 e-Cigarette/Vaping Use Never Used 11/24/23 15:22 Thrive Assessment: Date of Thrive Assessment Date Thrive assessed 09/22/23 11/24/23 15:22 Const Other: APPEARS FAIRLY HYPERACTIVE. General: healthy appearing, no acute distress, alert and awake Nutritional Appearance: well nourished Orientation/consciousness: oriented to person, oriented to place and oriented to time HENMT Ears: TM's normal bilaterally General nose exam: Normal nasal mucous membranes and turbinates present Eyes Conjunctivae: conjunctivae normal Sclerae: sclerae normal Pupils: Equal, round and reactive pupils present Neck Neck: Yes no lymphadenopathy and Yes no JVD Thyroid: Thyroid normal Carotids: no bruits Resp Effort & Inspection: normal respiratory effort and not tachypneic Auscultation: no crackles, no rales, no rhonchi and no wheezes Cardio Rate: regular rate Rhythm: regular rhythm Heart sounds: no murmurs and normal S1 and S2 GI Palpation (GI): Soft to palpation, nontender, no hepatomegaly and no splenomegaly Auscultation: normal bowel sounds Skin General skin exam: no rashes or lesions noted and dry skin Neuro General: oriented to person, oriented to place and oriented to time Cranial nerves: Yes Equal, round and reactive pupils present Speech: No Abnormal speech present Gait exam (Neuro): Normal gait present Motor exam (neuro): no tremor noted Extrem Right upper extremity: full ROM Left upper extremity: full ROM Right lower extremity: full ROM; no edema Left lower extremity: full ROM; no edema Psych Other: HYPERACTIVE Mental Status: mental status grossly normal Speech and movement: Normal speech and movement present and Pressured speech present Affect: normal affect Attitude: cooperative Thought process: Normal thought process present Assessment and Plan Assessment & Plan (1) ADHD: Code(s): F90.9 - Attention-deficit hyperactivity disorder, unspecified type Qualifiers: Attention deficit-hyperactivity disorder type: combined inattentive-hyperactive Qualified Code(s): F90.2 - Attention-deficit hyperactivity disorder, combined type Plan: Patient has seen temporary outpatient psych provider. There was agreement on using Adderall 40 daily as treatment for ADHD. Also an additional 15 mg Adderall in the afternoons for her ADHD symptoms in the afternoon. Will try to follow her closely as she does history of substance use disorder, mental health disorder and currently homeless. (2) Chronic post-traumatic stress disorder (PTSD): Code(s): F43.12 - Post-traumatic stress disorder, chronic Plan: Has been recently started on lamotrigine 100 mg to which she feels helps her mood and anxiety. Will consider increasing to 125 mg for better response. (3) Opiate dependence: Code(s): F11.20 - Opioid dependence, uncomplicated Qualifiers: Substance use status: in remission Qualified Code(s): F11.21 - Opioid dependence, in remission Plan: Patient was previously on Suboxone though has weaned herself off. Per patient she reports she has not actively using any opiates, she does admit to some cocaine use from time time. She is currently homeless and looking jail. She with lives with family from time to time. Medications: Refilled gabapentin 400 mg PO BID 60 caps 3RF 30 days G62.9 - Polyneuropathy, unspecified dextroamphetamine-amphetamine 20 mg ER (Adderall XR) Partial Fill upon patient request. 40 mg (2 x 20 mg) PO QAM 14 caps 0RF 7 days omeprazole 40 mg PO DAILY 90 caps 1RF 90 days K21.9 - Gastro-esophageal reflux disease without esophagitis Coding Level of Care Code Est Pt Level 4 (98100) Diagnoses Attention deficit hyperactivity disorder (ADHD), combined type F90.2 Attention deficit-hyperactivity disorder type: combined inattentive-hyperactive Chronic post-traumatic stress disorder (PTSD) F43.12 Opioid dependence in remission F11.21 Substance use status: in remission
[2023-11-24 15:27] VITALS: BP 140/94; PULSE 112; O2SAT 96; BMI 21.8
== END 2023-11-24 15:53 | disposition home or self-care (01) ==
PROVIDERS: PCP Physician Assistant; Visit Provider Physician Assistant
DX: F11.21 Opioid dependence, in remission (principal); F90.2 Attention-deficit hyperactivity disorder, combined type; K21.9 Gastro-esophageal reflux disease without esophagitis; I10 Essential (primary) hypertension; F43.12 Post-traumatic stress disorder, chronic
CPT/HCPCS: 99214

== ENCOUNTER 2024-04-19 13:53 | Outpatient (REF) | payer OTHER, SELFPAY ==
[2024-04-19 15:46] LABS: Hematocrit 43.5 % (37.0-47.0); Hemoglobin 14.7 g/dl (12.0-16.0); Mean Corpuscular HGB Conc 33.8 g/dl (31.0-35.0); Mean Corpuscular Hemoglobin 30.9 pg (27.0-33.0); Mean Corpuscular Volume 91.6 fL (80.0-98.0); Mean Platelet Volume 10.2 fL (9.4-12.3); Platelet Count 486 X10*3/uL (160-400); Red Blood Count 4.75 X10*6/uL (4.20-5.50); Red Cell Distribution Width 13.1 % (11.0-16.0); White Blood Count 9.5 X10*3/uL (4.8-10.8)
[2024-04-19 16:06] LABS: Anion Gap 14 (12-20); Blood Urea Nitrogen 16 mg/dL (9-16); Calcium 10.2 mg/dL (8.4-10.2); Carbon Dioxide 26 mmol/L (22-29); Chloride 104 mmol/L (96-108); Estimated Glomerular Filt Rate 56; Glucose Random 111 mg/dL (60-115); Potassium 4.1 mmol/L (3.3-5.1); Sodium 140 mmol/L (135-145)
[2024-04-22 12:39] LABS: Aspergillus Antigen Not Detected (Not Detected); Index Value 0.04 (<0.50)
[2024-04-29 19:29] LABS: IgE Antibody (Anti-IgE IgG) <6 ng/mL (<168)
== END 2024-04-19 13:54 | disposition home or self-care (01) ==
LOC: HO.LAB 13:53
PROVIDERS: PCP Physician Assistant; Visit Provider Physician Assistant
DX: J43.9 Emphysema, unspecified (principal); I10 Essential (primary) hypertension; F90.2 Attention-deficit hyperactivity disorder, combined type; F11.21 Opioid dependence, in remission; Z59.00 Homelessness unspecified
CPT/HCPCS: 80048; 83520; 85027; 87305; 96127; 99212

== ENCOUNTER 2024-04-19 13:53 | Outpatient (AMB) | payer OTHER, SELFPAY ==
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
[2024-04-19 14:14] VITALS: BP 122/86; PULSE 30; TEMP 36.2; O2SAT 96; BMI 21.7
== END 2024-04-19 14:35 | disposition home or self-care (01) ==
PROVIDERS: PCP Physician Assistant; Visit Provider Physician Assistant
DX: F90.2 Attention-deficit hyperactivity disorder, combined type (principal); F11.21 Opioid dependence, in remission; Z59.00 Homelessness unspecified

== ENCOUNTER 2024-05-04 13:45 | Outpatient (REF) | payer OTHER, SELFPAY ==
[2024-05-04 15:17] LABS: Amphetamine Screen Urine Not Detected (Not Detect); Barbiturates, Urine Not Detected (Not Detect); Benzodiazepines Screen Urine Not Detected (Not Detect); Buprenorphine Scr Not Detected (Not Detect); Cannabinoid Screen Urine Not Detected (Not Detect); Cocaine Screen Urine Not Detected (Not Detect); Fentanyl, urine Not Detected (Not Detect); Methadone Screen, Urine Not Detected (Not Detect); Opiate Screen Urine Not Detected (Not Detect); Oxycodone Screen Urine Not Detected (Not Detect); Phencyclidine Screen Urine Not Detected (Not Detect)
== END 2024-05-04 13:46 | disposition home or self-care (01) ==
LOC: HO.LAB 13:45
PROVIDERS: PCP Physician Assistant; Visit Provider Physician Assistant
DX: F11.21 Opioid dependence, in remission (principal)
CPT/HCPCS: 80307

== ENCOUNTER 2024-10-09 08:48 | Outpatient (AMB) | payer OTHER, SELFPAY ==
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
[2024-10-09 08:52] VITALS: BP 120/70; PULSE 102; TEMP 36; O2SAT 96; BMI 20.6
--- OUTSIDE RECORDS SUMMARY | 2024-10-09 08:55 | XMS_ITS | Clinical Summary ---
Author Organization [facility] Address [address] [place] [address] Phone Care Team Providers Care Quality Management Nurse Name Role Phone AmbrosioCharlie Primary Care Provider Allergies No known active allergies Immunizations Immunization Administration Dates Next Due Tdap 06/14/2024 Social History Tobacco Use Types Packs/Day Years Used Date Smoking Tobacco: Never Assessed Comments Unknown Sex and Gender Information Value Date Recorded Sex Assigned at Not on file Legal Sex Female 2:59 AM EDT Gender Identity Not on file Sexual Orientation Not on file Last Filed Vital Signs Vital Sign Reading Time Taken Comments Blood Pressure 129/74 06/14/2024 4:48 AM EDT Pulse 89 06/14/2024 4:48 AM EDT Temperature 36.6 C (97.9 F) 06/14/2024 3:20 AM EDT Respiratory Rate 16 06/14/2024 4:48 AM EDT Oxygen Saturation 96% 06/14/2024 4:48 AM EDT Inhaled Oxygen Concentration - - Weight - - Height - - Body Mass Index - - Plan of Treatment Health Maintenance Due Date Last Done Comments [facility] TOPIC SIGMOIDOSCOPY 1963 [facility] Topic HIV Screening 1963 [facility] Topic Hepatitis C Screening 1963 [facility] Topic Lipid Profile 5 years 1985 [facility] Topic Cervical Cancer Screening 1993 [facility] TOPIC MAMMOGRAM 2003 [facility] TOPIC FOBT/FIT TEST 2008 [facility] Topic Cologuard 2008 [facility] Topic Colon Cancer Screening 2008 [facility] Topic Colonoscopy 2008 [facility] Topic Pneumococcal Va ccine (HEDIS/Adult) (1 of 1 - PCV) 2013 [facility] Topic Shingrix (1 of 2) 2013 [facility] Topic Influenza (Flu) Seasonal (#1) 2024 [facility] Topic DTaP/TDAP/TD (2 - Td or Tdap) 06/14/2034 06/14/2024 [facility] Topic HIB Vaccines Aged Out No longer eligible based on patient's age to complete this [place] [id number] [facility] Care Teams Quality Management Nurse Relationship Specialty Start Date End Date Charlie Valente [address] [place] [address] [place] [address] PCP - General Internal Medicine 06/14/24
== END 2024-10-09 09:15 | disposition home or self-care (01) ==
LOC: HO.HMCH 08:49
PROVIDERS: PCP Physician Assistant; Visit Provider Physician Assistant
DX: F90.2 Attention-deficit hyperactivity disorder, combined type (principal); F11.21 Opioid dependence, in remission; F33.1 Major depressive disorder, recurrent, moderate; Z59.00 Homelessness unspecified; D17.1 Benign lipomatous neoplasm of skin and subcutaneous tissue of trunk

== ENCOUNTER → 2024-10-09 08:48 | Outpatient (BNVA) | payer OTHER, SELFPAY | PROVIDERS: PCP Physician Assistant; Visit Provider Physician Assistant | DX: I10 Essential (primary) hypertension (principal); J44.9 Chronic obstructive pulmonary disease, unspecified; F90.9 Attention-deficit hyperactivity disorder, unspecified type; F41.9 Anxiety disorder, unspecified; F42.9 Obsessive-compulsive disorder, unspecified; K21.9 Gastro-esophageal reflux disease without esophagitis; F90.2 Attention-deficit hyperactivity disorder, combined type; F11.21 Opioid dependence, in remission; K59.00 Constipation, unspecified; D17.1 Benign lipomatous neoplasm of skin and subcutaneous tissue of trunk; F33.1 Major depressive disorder, recurrent, moderate; J43.9 Emphysema, unspecified; F43.12 Post-traumatic stress disorder, chronic; Z59.00 Homelessness unspecified | CPT/HCPCS: 96127; 99212 ==